=== PATIENT | male | born 1960 | race Caucasian/White ===

== ENCOUNTER 2023-06-14 14:06 | Outpatient (RCR) | payer OTHER, SELFPAY ==
[2023-06-14 14:30] VITALS: BP 171/84
[2023-06-14 14:52] VITALS: BP 157/83; BP 173/87
== END 2023-07-05 23:59 | disposition home or self-care (01) ==
LOC: OID 14:06
PROVIDERS: ATTENDING PHYSICIAN Nurse Practitioner Adult Health; FAMILY PHYSICIAN Internal Medicine Cardiovascular Disease
DX: D45 Polycythemia vera (principal)
CPT/HCPCS: 99195

== ENCOUNTER 2023-08-01 13:27 | Outpatient (RCR) | payer OTHER, SELFPAY ==
[2023-08-01 13:40] VITALS: BP 165/82
[2023-08-01 14:05] VITALS: BP 159/75
[2023-08-01 14:10] VITALS: BP 140/82
== END 2023-08-03 23:59 | disposition home or self-care (01) ==
LOC: OID 13:27
PROVIDERS: ATTENDING PHYSICIAN Nurse Practitioner Adult Health; FAMILY PHYSICIAN Internal Medicine Cardiovascular Disease
DX: D45 Polycythemia vera (principal)
CPT/HCPCS: 99195

== ENCOUNTER 2023-09-06 13:31 | Outpatient (RCR) | payer OTHER, SELFPAY ==
[2023-09-06 13:45] VITALS: BP 160/86
[2023-09-06 14:18] VITALS: BP 172/83
[2023-09-06 14:21] VITALS: BP 142/85
[2023-09-06 14:24] VITALS: BP 138/89
== END 2023-09-07 08:58 | disposition home or self-care (01) ==
LOC: OID 13:31
PROVIDERS: ATTENDING PHYSICIAN Nurse Practitioner Adult Health; FAMILY PHYSICIAN Internal Medicine Cardiovascular Disease
DX: D45 Polycythemia vera (principal)
CPT/HCPCS: 99195

== ENCOUNTER 2023-11-03 13:06 | Outpatient (RCR) | payer OTHER, SELFPAY ==
[2023-11-03 13:50] VITALS: BP 173/90
[2023-11-03 14:13] VITALS: BP 169/89
[2023-11-03 14:25] VITALS: BP 169/89
== END 2023-11-03 23:59 | disposition home or self-care (01) ==
LOC: OID 13:06
PROVIDERS: ATTENDING PHYSICIAN Internal Medicine Hematology & Oncology; FAMILY PHYSICIAN Internal Medicine Cardiovascular Disease
DX: D45 Polycythemia vera (principal)
CPT/HCPCS: 99195

== ENCOUNTER 2023-12-21 09:20 | Outpatient (RCR) | payer OTHER, SELFPAY ==
[2023-12-21 10:17] VITALS: BP 167/80
[2023-12-21 10:42] VITALS: BP 148/82
== END 2024-01-03 23:59 | disposition home or self-care (01) ==
LOC: OID 09:20
PROVIDERS: ATTENDING PHYSICIAN Internal Medicine Hematology & Oncology; FAMILY PHYSICIAN Internal Medicine Cardiovascular Disease
DX: D45 Polycythemia vera (principal)
CPT/HCPCS: 99195

== ENCOUNTER 2024-02-12 13:12 | Outpatient (RCR) | payer OTHER, SELFPAY ==
[2024-02-12 13:23] VITALS: BP 171/87
[2024-02-12 13:48] VITALS: BP 165/97
[2024-02-12 13:49] VITALS: BP 167/95
== END 2024-02-13 10:04 | disposition home or self-care (01) ==
LOC: OID 13:12
PROVIDERS: ATTENDING PHYSICIAN Internal Medicine Hematology & Oncology; FAMILY PHYSICIAN Internal Medicine Cardiovascular Disease
DX: D45 Polycythemia vera (principal)
CPT/HCPCS: 99195

== ENCOUNTER 2024-04-10 07:40 | Outpatient (RCR) | payer MEDICARE, SELFPAY ==
[2024-04-10 07:57] VITALS: BP 158/80
[2024-04-10 08:28] VITALS: BP 150/95
[2024-04-10 08:35] VITALS: BP 145/93
== END 2024-04-11 08:51 | disposition home or self-care (01) ==
LOC: OID 07:40
PROVIDERS: ATTENDING PHYSICIAN Internal Medicine Hematology & Oncology
DX: D45 Polycythemia vera (principal)
CPT/HCPCS: 99195

== ENCOUNTER 2024-05-15 08:50 | Outpatient (RCR) | payer MEDICARE, SELFPAY ==
[2024-05-15 09:18] VITALS: BP 157/83
[2024-05-15 09:49] VITALS: BP 149/90
[2024-05-15 09:55] VITALS: BP 147/83
== END 2024-06-04 23:59 | disposition home or self-care (01) ==
LOC: OID 08:50
PROVIDERS: ATTENDING PHYSICIAN Internal Medicine Hematology & Oncology
DX: D45 Polycythemia vera (principal)
CPT/HCPCS: 99195

== ENCOUNTER 2024-06-21 08:38 | Outpatient (RCR) | payer MEDICARE, SELFPAY ==
[2024-06-21 09:35] VITALS: BP 150/80
[2024-06-21 10:06] VITALS: BP 168/85
[2024-06-21 10:07] VITALS: BP 140/89
== END 2024-06-24 09:14 | disposition home or self-care (01) ==
LOC: OID 08:38
PROVIDERS: ATTENDING PHYSICIAN Internal Medicine Hematology & Oncology
DX: D45 Polycythemia vera (principal)
CPT/HCPCS: 99195

== ENCOUNTER 2024-07-22 13:24 | Outpatient (RCR) | payer MEDICARE, SELFPAY ==
[2024-07-22 13:40] VITALS: BP 135/99
[2024-07-22 14:05] VITALS: BP 161/87
[2024-07-22 14:10] VITALS: BP 143/97
== END 2024-07-23 09:39 | disposition home or self-care (01) ==
LOC: OID 13:24
PROVIDERS: ATTENDING PHYSICIAN Internal Medicine Hematology & Oncology
DX: D45 Polycythemia vera (principal)
CPT/HCPCS: 99195

== ENCOUNTER 2024-09-06 13:10 | Outpatient (RCR) | payer MEDICARE, SELFPAY ==
[2024-09-06 13:45] VITALS: BP 172/91
[2024-09-06 14:00] VITALS: BP 148/90
[2024-09-06 14:10] VITALS: BP 164/94
== END 2024-10-02 23:59 | disposition home or self-care (01) ==
LOC: OID 13:10
PROVIDERS: ATTENDING PHYSICIAN Internal Medicine Hematology & Oncology; FAMILY PHYSICIAN Family Medicine
DX: D45 Polycythemia vera (principal)
CPT/HCPCS: 99195

== ENCOUNTER 2024-10-09 13:09 | Outpatient (RCR) | payer MEDICARE, SELFPAY ==
[2024-10-09 14:01] VITALS: BP 150/86
[2024-10-09 14:36] VITALS: BP 150/88
== END 2024-11-02 23:59 | disposition home or self-care (01) ==
LOC: OID 13:09
PROVIDERS: ATTENDING PHYSICIAN Internal Medicine Hematology & Oncology; FAMILY PHYSICIAN Family Medicine
DX: D45 Polycythemia vera (principal)
CPT/HCPCS: 99195

== ENCOUNTER 2024-12-09 09:32 | Outpatient (RCR) | payer MEDICARE, SELFPAY ==
[2024-12-09 10:10] LABS: Hematocrit 41.0 % (39.0-52.0); Hemoglobin 13.2 g/dL (13.0-18.0); Mean Corp Hgb Conc. 32.2 g/dL (33.0-37.0); Mean Corpuscular Volume 75.6 fL (80.0-94.0); Platelet Count 282 10^3/uL (130-400); Red Cell Dist. Width 16.9 % (11.5-14.5)
== END 2025-01-02 23:59 | disposition home or self-care (01) ==
LOC: OID 09:32
PROVIDERS: ATTENDING PHYSICIAN Internal Medicine Hematology & Oncology; FAMILY PHYSICIAN Family Medicine
DX: D45 Polycythemia vera (principal)
CPT/HCPCS: 36415; 85025

== ENCOUNTER 2024-12-18 12:52 | Emergency (ER) | payer MEDICARE, SELFPAY ==
[2024-12-18 12:56] VITALS: BP 168/98
--- NOTE | 2024-12-18 13:42 | ED.GENMED ---
History of Present Illness
General
Chief Complaint: Musculo-Skeletal Complaint
Source: patient
Exam Limitations: none
Time Seen by Provider: 12/18/24 13:36
History of Present Illness
History of Present Illness:
Nonpainful nontraumatic right arm swelling with some swelling noted in his right axilla x 1 day. No pain numbness tingling weakness fever chills or other complaints. Patient has a history of polycythemia.
Past History
Past History
ED Past Medical History: GERD (Hiatal hernia), HTN, Hypercholesterolemia and Other (Polycythemia vera, gout, kidney stones)
ED Past Surgical History: Appendectomy, Tonsilectomy and Other (Umbilical and inguinal hernia repairs)
Social History
Tobacco: Non-smoker
Alcohol: Occasional
Personal:
Living: with family
Employment: Employed
Family History
Family History: Hypertension
Review of Systems
Review of Systems
All Other Systems: Not applicable
Respiratory: Reports no symptoms
Cardiac: Reports no symptoms
Phy Exam
Physical Exam
Physical Exam:
GENERAL: Alert and oriented in no apparent distress
EYE: Orbits normal.
NECK: Supple
CARDIAC: Regular rate and rhythm without any obvious murmurs.
LUNGS: Clear breath sounds,normal
ABDOMEN: Soft, without focal tenderness or distention. Elevated BMI
NEUROLOGICAL: Alert and oriented , grossly non-focal
SKIN: Warm and dry, no erythema warmth drainage etc.
MUSCULOSKELETAL: Mild swelling of the right arm at the proximal forearm localized. No warmth erythema or tenderness. No bony tenderness. Mild edema to the right axillary area although patient has large skin folds in this area. However appears
mildly asymmetrical. No warmth erythema fluctuance tenderness.
PSYCH: Normal and appropriate interaction.
Course
Orders/Labs/Results
Orders:
Orders
12/18/24 13:30
Periph Venous Upr Ext Right US [US Periph Venous UPPER Ext RT] Urgent
Comment:
Reason For Exam: swelling
12/18/24 13:41
CXR2 [CR Chest - 2 Views ] Urgent
Comment:
Reason For Exam: Right arm swelling.
Vital Signs
Initial and Last Documented VS:
Initial Vital Signs
Temp Pulse Resp BP Pulse Ox
98.8 F 90 17 168/98 99
12/18/24 12:56 12/18/24 12:56 12/18/24 12:56 12/18/24 12:56 12/18/24 12:56
Last Documented Vital Signs
Temp Pulse Resp BP Pulse Ox
98.8 F 81 18 161/94 97
12/18/24 12:56 12/18/24 15:51 12/18/24 15:51 12/18/24 15:51 12/18/24 15:51
*Radiology
Radiology exam reviewed: radiology read reviewed (Negative chest x-ray. Negative ultrasound)
*Pulse Oximetry
SaO2: 99
Oxygen Mode of Delivery: Room air
Patient hypoxic: no
*Critical Care Note
Total Time (30-74mins, 75-104mins- exclusive of procedures): Not Applicable
Update Note
Update Note:
Patient has remained stable and nontoxic. Patient had recent labs that were stable no serious etiology found. No signs of an infectious issue. No clot. Outpatient observation and follow-up
ED Attending Note
-
Portions of this chart may have been created with voice recognition software.� Occasional wrong word or��sound alike� substitutions may have occurred due to the inherent limitations of voice recognition software.
Discharge Plan
Departure
Patient Disposition: Home (Routine Discharge)
Date of Disposition: 12/18/24
Time of Disposition: 16:18
Patient with high blood pressure during this ER visit?: Yes
Discharge Problem:
Right arm swelling
Instructions: BLOOD PRESSURE
Prescriptions:
No Action
simvastatin 10 MG tablet
10 mg PO DAILY
aspirin 325 MG tablet
81 mg PO DAILY
amlodipine-atorvastatin 1 EACH tablet
1 ea PO DAILY
hydrochlorothiazide 25 mg Tablet
25 mg PO DAILY
Referrals:
Nate Carey MD [Family Provider, [facility]] - Follow up in 2-3 days
Activity Restrictions/Additional Instructions:
Return with increased or persistent arm swelling, redness pain fever or any other concerning symptoms
Interventions
Interventions:
*Risk Screen - Suicide Last Done: 12/18/24 12:57
*General Assessment Last Done: 12/18/24 12:57
*Neglect/Abuse Screening Last Done: 12/18/24 12:57
*ED COVID-19 Vaccine History Last Done: 12/18/24 12:57
ED-Musculoskeletal Assessment Last Done: 12/18/24 13:36
Discharge Date and Time
Print Language: TAMAZIGHT
[2024-12-18 15:51] VITALS: BP 161/94
== END 2024-12-18 16:30 | disposition home or self-care (01) ==
LOC: EMR 12:52
PROVIDERS: EMERGENCY PHYSICIAN Emergency Medicine; FAMILY PHYSICIAN Family Medicine
DX: R22.31 Localized swelling, mass and lump, right upper limb (principal); E78.00 Pure hypercholesterolemia, unspecified; I10 Essential (primary) hypertension; Z82.49 Family history of ischemic heart disease and other diseases of the circulatory system; Z87.442 Personal history of urinary calculi; Z90.49 Acquired absence of other specified parts of digestive tract; K21.9 Gastro-esophageal reflux disease without esophagitis; K44.9 Diaphragmatic hernia without obstruction or gangrene; D45 Polycythemia vera
CPT/HCPCS: 99284; 71046; 93971

== ENCOUNTER 2025-01-09 07:47 | Outpatient (RCR) | payer MEDICARE, SELFPAY ==
[2025-01-09 08:10] LABS: Hematocrit 45.0 % (39.0-52.0); Hemoglobin 14.6 g/dL (13.0-18.0); Mean Corp Hgb Conc. 32.4 g/dL (33.0-37.0); Mean Corpuscular Volume 76.9 fL (80.0-94.0); Platelet Count 280 10^3/uL (130-400); Red Cell Dist. Width 18.6 % (11.5-14.5)
[2025-01-09 08:40] VITALS: BP 131/71
[2025-01-09 09:00] VITALS: BP 140/81
[2025-01-09 09:05] VITALS: BP 147/86
[2025-01-09 09:10] VITALS: BP 126/74
== END 2025-02-02 23:59 | disposition home or self-care (01) ==
LOC: OID 07:47
PROVIDERS: ATTENDING PHYSICIAN Internal Medicine Hematology & Oncology; FAMILY PHYSICIAN Family Medicine
DX: D45 Polycythemia vera (principal)
CPT/HCPCS: 36415; 85025; 99195

== ENCOUNTER 2025-02-17 13:52 | Outpatient (RCR) | payer MEDICARE, SELFPAY ==
[2025-02-17 14:05] LABS: Hematocrit 44.5 % (39.0-52.0); Hemoglobin 14.4 g/dL (13.0-18.0); Mean Corp Hgb Conc. 32.4 g/dL (33.0-37.0); Mean Corpuscular Volume 77.9 fL (80.0-94.0); Platelet Count 324 10^3/uL (130-400); Red Cell Dist. Width 16.9 % (11.5-14.5)
[2025-02-17 14:21] VITALS: BP 155/79
[2025-02-17 14:46] VITALS: BP 157/80
[2025-02-17 14:48] VITALS: BP 153/81
[2025-02-17 14:53] VITALS: BP 140/87
== END 2025-03-04 23:59 | disposition home or self-care (01) ==
LOC: OID 13:52
PROVIDERS: ATTENDING PHYSICIAN Internal Medicine Hematology & Oncology; FAMILY PHYSICIAN Family Medicine
DX: D45 Polycythemia vera (principal)
CPT/HCPCS: 36415; 85025; 99195

== ENCOUNTER 2025-03-19 12:56 | Outpatient (RCR) | payer MEDICARE, SELFPAY ==
[2025-03-19 13:07] LABS: Hematocrit 43.6 % (39.0-52.0); Hemoglobin 14.1 g/dL (13.0-18.0); Mean Corp Hgb Conc. 32.3 g/dL (33.0-37.0); Mean Corpuscular Volume 78.3 fL (80.0-94.0); Platelet Count 344 10^3/uL (130-400); Red Cell Dist. Width 15.6 % (11.5-14.5)
== END 2025-04-04 15:01 | disposition home or self-care (01) ==
LOC: OID 12:56
PROVIDERS: ATTENDING PHYSICIAN Internal Medicine Hematology & Oncology; FAMILY PHYSICIAN Family Medicine
DX: D45 Polycythemia vera (principal)
CPT/HCPCS: 36415; 85025

== ENCOUNTER 2025-04-30 13:51 | Outpatient (RCR) | payer MEDICARE, SELFPAY ==
[2025-04-09 13:22] LABS: Hematocrit 43.6 % (39.0-52.0); Hemoglobin 14.1 g/dL (13.0-18.0); Mean Corp Hgb Conc. 32.3 g/dL (33.0-37.0); Mean Corpuscular Volume 78.3 fL (80.0-94.0); Platelet Count 290 10^3/uL (130-400); Red Cell Dist. Width 15.6 % (11.5-14.5)
[2025-04-30 13:59] LABS: Hematocrit 45.5 % (39.0-52.0); Hemoglobin 14.7 g/dL (13.0-18.0); Mean Corp Hgb Conc. 32.3 g/dL (33.0-37.0); Mean Corpuscular Volume 78.9 fL (80.0-94.0); Platelet Count 321 10^3/uL (130-400); Red Cell Dist. Width 15.8 % (11.5-14.5)
[2025-04-30 14:28] VITALS: BP 166/84
[2025-04-30 14:54] VITALS: BP 148/81
[2025-04-30 14:57] VITALS: BP 159/86
== END 2025-05-04 23:59 | disposition home or self-care (01) ==
LOC: OID 13:51
PROVIDERS: ATTENDING PHYSICIAN Internal Medicine Hematology & Oncology; FAMILY PHYSICIAN Family Medicine
DX: D45 Polycythemia vera (principal)
CPT/HCPCS: 36415; 85025; 99195

== ENCOUNTER 2025-06-02 13:07 | Outpatient (RCR) | payer MEDICARE, SELFPAY ==
[2025-06-02 13:20] LABS: Hematocrit 44.6 % (39.0-52.0); Hemoglobin 14.5 g/dL (13.0-18.0); Mean Corp Hgb Conc. 32.5 g/dL (33.0-37.0); Mean Corpuscular Volume 80.5 fL (80.0-94.0); Platelet Count 308 10^3/uL (130-400); Red Cell Dist. Width 16.9 % (11.5-14.5)
[2025-06-02 13:37] VITALS: BP 158/100
[2025-06-02 14:12] VITALS: BP 165/90; BP 166/94
== END 2025-06-04 23:59 | disposition home or self-care (01) ==
LOC: OID 13:07
PROVIDERS: ATTENDING PHYSICIAN Internal Medicine Hematology & Oncology; FAMILY PHYSICIAN Family Medicine
DX: D45 Polycythemia vera (principal)
CPT/HCPCS: 36415; 85025; 99195